=== PATIENT | female | born 2000 | race Caucasian/White ===

== ENCOUNTER 2022-10-28 17:56 | Emergency (ER) | payer MEDICAID ==
[~2022-10-28] VITALS: Ht 157.5 cm; Wt 54.4 kg
[2022-10-28 18:38] VITALS: BP_SYST 107
[2022-10-28] MEDS ORDERED: TRAM50TA2 PO (20:40)
[2022-10-28] MEDS ORDERED: IBUP-1969 PO (20:40)
[2022-10-28 20:46] VITALS: BP_SYST 114
== END 2022-10-28 20:46 | disposition home or self-care (01) ==
LOC: SED 17:56
DX: S93.601A Unspecified sprain of right foot, initial encounter (principal); Z79.899 Other long term (current) drug therapy; W18.42XA Slipping, tripping and stumbling without falling due to stepping into hole or opening, initial encounter; Y93.02 Activity, running; Y92.89 Other specified places as the place of occurrence of the external cause; Y99.8 Other external cause status
CPT/HCPCS: 73700-TC; 76376; 99284